=== PATIENT | male | born 1940 | race Caucasian/White ===

== ENCOUNTER 2022-03-23 12:48 | Emergency (ER) | payer BC ==
[2022-03-23 13:30] VITALS: BP 156/68; PULSE 104; TEMP 98; BMI 26.4
[2022-03-23] MEDS ORDERED: BEBTELOVIMAB (EUA) 175 MG/2 ML VIAL IVPUSH ONE (14:28)
== END 2022-03-23 16:38 | disposition home or self-care (01) ==
LOC: JER 12:48 → JCOVINFU 12:48
DX: U07.1 COVID-19 (principal)
CPT/HCPCS: 96374; 99284-25